=== PATIENT | female | born 1980 | race Caucasian/White ===

== ENCOUNTER 2017-07-12 11:52 | Emergency (ER) | payer BC, MEDICAID ==
[2017-07-12] MEDS ORDERED: Sodium Chloride 0.9% 10 ML Syringe FLUSH PRN (12:20)
[2017-07-12] MEDS ORDERED: Metoclopramide 10 MG/2 ML SDV IVPUSH ONE (12:21)
[2017-07-12] MEDS ORDERED: diphenhydrAMINE 50 MG/ML SDV IVPUSH ONE (12:22)
[2017-07-12] MEDS ORDERED: HYDROmorphone 0.5 MG/0.5 ML Syringe IVPUSH ONE ×3 (12:22→15:10)
[2017-07-12] MEDS ORDERED: Sodium Chloride 0.9% 1,000 ML IV SCH (12:30)
--- NOTE | 2017-07-12 12:59 | EDM.PDOC ---
ED HPI GENERAL MEDICAL PROBLEM - General Chief Complaint: Headache Stated Complaint: HEADACHE,10 WKS ,VOMITIN Time Seen by Provider: 07/12/17 12:09 Source of Information: Reports: Patient History Limitations: Reports: No Limitations - History of Present Illness INITIAL COMMENTS - FREE TEXT/NARRATIVE: The patient has a headache since last Thursday so for 8 days. It started in the frontal area and now it is every where. She has a history of headaches but she will usually take excedrin and it goes away. She is 10 weeks with a LNMP of May 03. She has seen her doctor and given reglan and benadryl and it is not going away. She has no fever or chills. The light makes it worse. She has no numbness or weakness. She has nausea and vomiting. She has no discharge or bleeding. Onset: Gradual Duration: Day(s): (8) Location: Reports: Head Quality: Reports: Ache Severity: Severe Improves with: Reports: None Worsens with: Reports: Other (Light) Associated Symptoms: Reports: Headaches, Nausea/Vomiting. Denies: Chest Pain, Fever/Chills, Shortness of Breath Headache Pain Score (Numeric/FACES): 10 - Related Data Allergies Allergy/AdvReac Type Severity Reaction Status Date / Time cefixime [From Suprax] Allergy Hives Verified 07/12/17 12:10 Home Meds: Home Meds Acetaminophen with Codeine [Tylenol with Codeine #3 Tablet] 1 - 2 tab PO Q4H PRN 07/12/17 [History] Ondansetron [Zofran] 4 mg PO Q8H PRN 07/12/17 [History] Vit W-Ca,Fe,FA(<1 mg) [ Vitamins] 1 tab PO DAILY 07/12/17 [ History] Past Medical History CAT SKINNER History: Reports: Other Neuro History: "narceleptic" - Past Surgical History HEENT Surgical History: Reports: Tonsillectomy Other HEENT Surgeries/Procedures: TMJ Social & Family History - Family History Family Medical History: Noncontributory - Tobacco Use Smoking Status *Q: Never Smoker - Recreational Drug Use Recreational Drug Use: No ED ROS GENERAL - Review of Systems Review Of Systems: See Below Constitutional: Reports: No Symptoms HEENT: Reports: No Symptoms Respiratory: Reports: No Symptoms Cardiovascular: Reports: No Symptoms Endocrine: Reports: No Symptoms GI/Abdominal: Reports: Nausea, Vomiting. Denies: Abdominal Pain : Reports: No Symptoms Musculoskeletal: Reports: No Symptoms Skin: Reports: No Symptoms Neurological: Reports: Headache - Physical Exam Exam: See Below Exam Limited By: No Limitations General Appearance: Alert, No Apparent Distress Ears: Normal External Exam Nose: Normal Inspection Head Exam: Atraumatic, Normocephalic Neck: Normal Inspection Respiratory/Chest: No Respiratory Distress, Lungs Clear, Normal Breath Sounds Cardiovascular: Regular Rate, Rhythm, No Edema, No Murmur GI/Abdominal: Soft, Non-Tender, No Organomegaly, No Mass Neuro Exam (Abbreviated): Alert, Oriented, No Motor/Sensory Deficits Course - Vital Signs Last Recorded V/S: Last Vital Signs Temp 97.9 F 07/12/17 12:05 Pulse 67 07/12/17 15:30 Resp 16 07/12/17 15:30 BP 112/57 L 07/12/17 15:30 Pulse Ox 98 07/12/17 15:30 - Orders/Labs/Meds Orders: Active Orders 24 hr Category Date Time Status Cardiac Monitoring [RC] . DIRECTED Care 07/12/17 12:20 Active Peripheral IV Care [RC] . DIRECTED Care 07/12/17 12:20 Active UA W/MICROSCOPIC [URIN] Stat Lab 07/12/17 12:20 Uncollected Sodium Chloride 0.9% [Normal Saline] 1,000 ml Med 07/12/17 12:30 Active IV .BOLUS Sodium Chloride 0.9% [Saline Flush] Med 07/12/17 12:20 Active 10 ml FLUSH ASDIRECTED PRN Peripheral IV Insertion Adult [OM.PC] Stat Oth 07/12/17 12:20 Ordered Medication Orders Sodium Chloride (Normal Saline) 1,000 mls @ 1,000 mls/hr IV .BOLUS ASHLYN Last Admin: 07/12/17 12:39 Dose: 1,000 mls/hr Sodium Chloride (Saline Flush) 10 ml FLUSH ASDIRECTED PRN PRN Reason: Keep Vein Open Last Admin: 07/12/17 12:30 Dose: 10 ml Labs: Laboratory Tests 07/12/17 07/12/17 Range/Units 12:30 12:30 WBC 14.03 H (3.98-10.04) K/mm3 RBC 4.41 (3.98-5.22) M/mm3 Hgb 13.3 (11.2-15.7) gm/L Hct 39.3 (34.1-44.9) % MCV 89.1 (79.4-94.8) fl MCH 30.2 (25.6-32.2) pg MCHC 33.8 (32.2-35.5) g/dl RDW Std Deviation 38.6 (36.4-46.3) fL Plt Count 134 L (182-369) K/mm3 MPV 10.3 (9.4-12.3) fl Neut % (Auto) 83.8 H (34.0-71.1) % Lymph % (Auto) 9.2 L (19.3-51.7) % [place] % (Auto) 5.6 (4.7-12.5) % Eos % (Auto) 0.9 (0.7-5.8) Baso % (Auto) 0.1 (0.1-1.2) % Neut # (Auto) 11.77 H (1.56-6.13) K/mm3 Lymph # (Auto) 1.29 (1.18-3.74) K/mm3 [place] # (Auto) 0.78 H (0.24-0.36) K/mm3 Eos # (Auto) 0.13 (0.04-0.36) K/mm3 Baso # (Auto) 0.01 (0.01-0.08) K/mm3 Manual Slide Review Abnormal smear Sodium 136 (136-145) mEq/L Potassium 3.7 (3.5-5.1) mEq/L Chloride 102 (98-107) mEq/L Carbon Dioxide 26 (21-32) mEq/L Anion Gap 11.7 (5-15) BUN 10 (7-18) mg/dL Creatinine 0.8 (0.55-1.02) mg/dL Est Cr Clr Drug Dosing 98.07 mL/min Estimated GFR (MDRD) > 60 (>60) mL/min BUN/Creatinine Ratio 12.5 L (14-18) Glucose 104 (74-106) mg/dL Calcium 9.5 (8.5-10.1) mg/dL Total Bilirubin 0.5 (0.2-1.0) mg/dL AST 15 (15-37) U/L ALT 21 (14-59) U/L Alkaline Phosphatase 89 (46-116) U/L Total Protein 7.4 (6.4-8.2) g/dl Albumin 3.4 (3.4-5.0) g/dl Globulin 4.0 gm/dL Albumin/Globulin Ratio 0.9 L (1-2) Meds: Medications Generic Name Dose Route Start Last Admin Trade Name Freq PRN Reason Stop Dose Admin Sodium Chloride 1,000 mls @ 1,000 mls/hr 07/12/17 12:30 07/12/17 12:39 Normal Saline IV 1,000 mls/hr .BOLUS ASHLYN Administration Sodium Chloride 10 ml 07/12/17 12:20 07/12/17 12:30 Saline Flush FLUSH 10 ml ASDIRECTED PRN Administration Keep Vein Open Discontinued Medications Generic Name Dose Route Start Last Admin Trade Name Freq PRN Reason Stop Dose Admin Diphenhydramine HCl 50 mg 07/12/17 12:22 07/12/17 12:43 Benadryl IVPUSH 07/12/17 12:23 50 mg ONETIME ONE Administration Hydromorphone HCl 0.5 mg 07/12/17 12:22 07/12/17 12:46 Dilaudid IVPUSH 07/12/17 12:23 0.5 mg ONETIME ONE Administration Hydromorphone HCl 0.5 mg 07/12/17 13:43 07/12/17 13:59 Dilaudid IVPUSH 07/12/17 13:44 0.5 mg ONETIME ONE Administration Hydromorphone HCl 0.5 mg 07/12/17 15:10 07/12/17 15:25 Dilaudid IVPUSH 07/12/17 15:11 0.5 mg ONETIME ONE Administration Metoclopramide HCl 10 mg 07/12/17 12:21 07/12/17 12:41 Reglan IVPUSH 07/12/17 12:22 10 mg ONETIME ONE Administration - Re-Assessments/Exams Free Text/Narrative Re-Assessment/Exam: 07/12/17 16:01 I ordered an IV NS 1L bolus, reglan 10mg IV, benadryl 50mg IV and dilaudid 0.5mg IV. 08/20/17 16:01 Her WBC was elevated at 14.03. The rest of her labs look good. Her headache would come back at times. I gave her a couple more doses of dilaudid 0.5mg IV. Departure - Departure Time of Disposition: 16:05 Disposition: Home, Self-Care 01 Condition: Good Clinical Impression: Headache Qualifiers: Headache type: unspecified Headache chronicity pattern: acute headache Intractability: not intractable Qualified Code(s): R51 - Headache Qualifiers: Weeks of gestation: 10 weeks Qualified Code(s): Z3A.10 - 10 weeks gestation of - Discharge Information Referrals: Ester Conklin MD [Primary Care Provider] - Forms: ED Department Discharge Additional Instructions: Go home and rest. Follow up with Dr Conklin this week. Please return if you are worse. - My Orders Last 24 Hours: My Active Orders 07/12/17 12:20 Cardiac Monitoring [RC] . DIRECTED Peripheral IV Care [RC] . DIRECTED UA W/MICROSCOPIC [URIN] Stat Sodium Chloride 0.9% [Saline Flush] 10 ml FLUSH ASDIRECTED PRN Peripheral IV Insertion Adult [OM.PC] Stat 07/12/17 12:30 Sodium Chloride 0.9% [Normal Saline] 1,000 ml IV .BOLUS - Assessment/Plan Last 24 Hours: My Active Orders 07/12/17 12:20 Cardiac Monitoring [RC] . DIRECTED Peripheral IV Care [RC] . DIRECTED UA W/MICROSCOPIC [URIN] Stat Sodium Chloride 0.9% [Saline Flush] 10 ml FLUSH ASDIRECTED PRN Peripheral IV Insertion Adult [OM.PC] Stat 07/12/17 12:30 Sodium Chloride 0.9% [Normal Saline] 1,000 ml IV .BOLUS
[2017-07-12 16:47] VITALS: BP 109/61
== END 2017-07-12 16:10 | disposition home or self-care (01) ==
LOC: JD.ED 11:52
DX: O99.89 Other specified diseases and conditions complicating pregnancy, childbirth and the puerperium (principal); R51 Headache; Z88.1 Allergy status to other antibiotic agents; Z98.890 Other specified postprocedural states; Z79.899 Other long term (current) drug therapy; Z3A.10 10 weeks gestation of pregnancy
CPT/HCPCS: 36415; 80053; 85025; 96361; 96374; 96375; 96376; 99284; J1170; J1200; J2765; J7040; J7050

== ENCOUNTER 2017-07-16 13:37 | Emergency (ER) | payer BC ==
[2017-07-16] MEDS ORDERED: Metoclopramide 10 MG/2 ML SDV IVPUSH ONE ×2 (14:39→18:07)
[2017-07-16] MEDS ORDERED: diphenhydrAMINE 50 MG/ML SDV IVPUSH ONE (14:39)
[2017-07-16] MEDS ORDERED: HYDROmorphone 1 MG/ML Syringe IVPUSH ONE ×2 (14:39→16:46)
[2017-07-16] MEDS ORDERED: Sodium Chloride 0.9% 10 ML Syringe FLUSH PRN (14:39)
--- NOTE | 2017-07-16 14:45 | EDM.PDOC ---
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 The is located to her entire cranium and into her neck. She has associated nausea, vomiting, photophobia, and phonophobia. She has vomited several times today and has been unable to keep food or fluids down. She has been struggling with headaches for the past two weeks. Her OBGYN put her on Tylenol #3 which does give her some relief. She denies fever, chills, or sweats. She has a history of migraines but never this severe. She says her BP has been well controlled through her . No weakness in extremities, difficulty walking, slurred speech, facial droop or vision changes. She was in the ED on 07/12/[address] was seen by Dr. Savage. She was treated with Dilaudid, Reglan and Benadryl. She had improvement while in the ED but the headache returned after discharge and has been persistent. She was scheduled to see a Neurologist at [place] today but due to the severity of her pain, she came to the ER and rescheduled her Neurology appointment for tomorrow. 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 Denies: Fever, Chills, Diaphoresis HEENT: Reports: No Symptoms. Denies: Vertigo, Vision Change Respiratory: Reports: No Symptoms Cardiovascular: Reports: No Symptoms. Denies: Blood Pressure Problem GI/Abdominal: Reports: Nausea, Vomiting. Denies: Abdominal Pain, Diarrhea Neurological: Reports: Headache. Denies: Dizziness, Numbness, Tingling, Difficulty Walking, Weakness - Physical Exam Exam: See Below Exam Limited By: No Limitations General Appearance: Alert, WD/WN, Moderate Distress Eye Exam: Bilateral Eye: EOMI, Normal Inspection, PERRL Throat/Mouth: Normal Inspection, Normal Oropharynx Neck: Normal Inspection, Supple, Non-Tender, Full Range of Motion, Other (no nuchal rigidity ). No: Tender Midline Respiratory/Chest: No Respiratory Distress, Lungs Clear, Normal Breath Sounds, Chest Non-Tender Cardiovascular: Normal Peripheral Pulses, Regular Rate, Rhythm, No Murmur GI/Abdominal: Normal Bowel Sounds, Soft, Non-Tender Neuro Exam (Abbreviated): Alert, Oriented, CN II-XII Intact, Normal Cognition, No Motor/Sensory Deficits, Other (cerebellar testing intact ) Course - Vital Signs Last Recorded V/S: Last Vital Signs Temp 98.3 F 07/16/17 13:44 Pulse 57 L 07/16/17 16:17 Resp 20 07/16/17 16:17 BP 105/64 07/16/17 16:17 Pulse Ox 100 07/16/17 16:17 Orthostatic Blood Pressure [ 119/63 Standing] Orthostatic Blood Pressure [ 122/61 Supine] - Orders/Labs/Meds Orders: Active Orders 24 hr Category Date Time Status Peripheral IV Care [RC] . DIRECTED Care 07/16/17 14:41 Active [place] VIRUS PANEL IGG,IGM [REF] Stat Lab 07/16/17 14:35 Received Sodium Chloride 0.9% [Saline Flush] Med 07/16/17 14:39 Active 10 ml FLUSH ASDIRECTED PRN Peripheral IV Insertion Adult [OM.PC] Stat Oth 07/16/17 14:39 Ordered Medication Orders Sodium Chloride (Saline Flush) 10 ml FLUSH ASDIRECTED PRN PRN Reason: Keep Vein Open Last Admin: 07/16/17 15:03 Dose: 10 ml Labs: Laboratory Tests 07/16/17 07/16/17 07/16/17 Range/Units 14:29 14:39 14:39 WBC 17.25 H (3.98-10.04) K/mm3 RBC 4.30 (3.98-5.22) M/mm3 Hgb 13.0 (11.2-15.7) gm/L Hct 37.6 (34.1-44.9) % MCV 87.4 (79.4-94.8) fl MCH 30.2 (25.6-32.2) pg MCHC 34.6 (32.2-35.5) g/dl RDW Std Deviation 37.9 (36.4-46.3) fL Plt Count 145 L (182-369) K/mm3 MPV 10.3 (9.4-12.3) fl Neut % (Auto) 90.3 H (34.0-71.1) % Lymph % (Auto) 5.6 L (19.3-51.7) % [place] % (Auto) 3.5 L (4.7-12.5) % Eos % (Auto) 0.2 L (0.7-5.8) Baso % (Auto) 0.1 (0.1-1.2) % Neut # (Auto) 15.58 H (1.56-6.13) K/mm3 Lymph # (Auto) 0.97 L (1.18-3.74) K/mm3 [place] # (Auto) 0.61 H (0.24-0.36) K/mm3 Eos # (Auto) 0.03 L (0.04-0.36) K/mm3 Baso # (Auto) 0.01 (0.01-0.08) K/mm3 Manual Slide Review Abnormal smear Sodium 134 L (136-145) mEq/L Potassium 3.7 (3.5-5.1) mEq/L Chloride 102 (98-107) mEq/L Carbon Dioxide 24 (21-32) mEq/L Anion Gap 11.7 (5-15) BUN 7 (7-18) mg/dL Creatinine 0.6 (0.55-1.02) mg/dL Est Cr Clr Drug Dosing TNP Estimated GFR (MDRD) > 60 (>60) mL/min BUN/Creatinine Ratio 11.7 L (14-18) Glucose 94 (74-106) mg/dL Calcium 9.1 (8.5-10.1) mg/dL Total Bilirubin 0.3 (0.2-1.0) mg/dL AST 18 (15-37) U/L ALT 23 (14-59) U/L Alkaline Phosphatase 97 (46-116) U/L C-Reactive Protein 6.3 H* (<1.0) mg/dL Total Protein 7.0 (6.4-8.2) g/dl Albumin 3.2 L (3.4-5.0) g/dl Globulin 3.8 gm/dL Albumin/Globulin Ratio 0.8 L (1-2) Meds: Medications Generic Name Dose Route Start Last Admin Trade Name Freq PRN Reason Stop Dose Admin Sodium Chloride 10 ml 07/16/17 14:39 07/16/17 15:03 Saline Flush FLUSH 10 ml ASDIRECTED PRN Administration Keep Vein Open Discontinued Medications Generic Name Dose Route Start Last Admin Trade Name Freq PRN Reason Stop Dose Admin Diphenhydramine HCl 50 mg 07/16/17 14:39 07/16/17 14:58 Benadryl IVPUSH 07/16/17 14:40 50 mg ONETIME ONE Administration Hydromorphone HCl 1 mg 07/16/17 14:39 07/16/17 14:58 Dilaudid IVPUSH 07/16/17 14:40 1 mg ONETIME ONE Administration Hydromorphone HCl 1 mg 07/16/17 16:46 07/16/17 17:24 Dilaudid IVPUSH 07/16/17 16:47 1 mg ONETIME ONE Administration Lactated Ringer's 1,000 mls @ 999 mls/hr 07/16/17 15:11 07/16/17 16:15 Ringers, Lactated IV 07/16/17 16:11 999 mls/hr .BOLUS ONE Administration Metoclopramide HCl 10 mg 07/16/17 14:39 07/16/17 14:58 Reglan IVPUSH 07/16/17 14:40 10 mg ONETIME ONE Administration Metoclopramide HCl 5 mg 07/16/17 18:12 07/16/17 18:16 Reglan IM 07/16/17 18:13 5 mg ONETIME ONE Administration - Re-Assessments/Exams Free Text/Narrative Re-Assessment/Exam: CBC reveals a WBC of 17,000 with high neutrophils. This has increased since her previous visit. CRP is elevated at 6.3. CMP is normal except for sodium of 134. An IV was placed and she was given LR 1 liter bolus, Dilaudid, Reglan, and Benadryl. This improved her headache to a 6/10. She will be given an additional dose of Dilaudid. I discussed her history, exam findings, and labs were Dr. Maria. He recommends ordering [place] testing. Dr. Maria does not recommend LP since the patient is afebrile and does not appear toxic. The patient has f/u with Neurology tomorrow. She was strongly encouraged to f/u as scheduled. Instructed to return to ER if she develops a fever or any new or worsening symptoms. 07/16/17 18:20 The patient was feeling well but when she got up at discharge, she became nauseated and vomited again. She was given an additional 5mg of IM Reglan as her IV had been discontinued. I encouraged them to consider going to [facility] while she is feeling better and to go to the [place] ER if anything worsens. She was instructed to continue her prescriptions and to see Neurology tomorrow as scheduled. Departure - Departure Time of Disposition: 17:25 Disposition: Home, Self-Care 01 Condition: Good Clinical Impression: Headache Qualifiers: Headache type: unspecified Headache chronicity pattern: acute headache Intractability: not intractable Qualified Code(s): R51 - Headache Qualifiers: Weeks of gestation: 10 weeks Qualified Code(s): Z3A.10 - 10 weeks gestation of - Discharge Information Referrals: Ester Conklin MD [Primary Care Provider] - Forms: ED Department Discharge Additional Instructions: Continue to use Tylenol #3 for headache Follow-up with Neurology tomorrow as scheduled Return to ER if you develop a fever or any new or worsening symptoms Rest as much as possible. - My Orders Last 24 Hours: My Active Orders 07/16/17 14:35 [place] VIRUS PANEL IGG,IGM [REF] Stat 07/16/17 14:39 Sodium Chloride 0.9% [Saline Flush] 10 ml FLUSH ASDIRECTED PRN Peripheral IV Insertion Adult [OM.PC] Stat 07/16/17 14:41 Peripheral IV Care [RC] . DIRECTED - Assessment/Plan Last 24 Hours: My Active Orders 07/16/17 14:35 [place] VIRUS PANEL IGG,IGM [REF] Stat 07/16/17 14:39 Sodium Chloride 0.9% [Saline Flush] 10 ml FLUSH ASDIRECTED PRN Peripheral IV Insertion Adult [OM.PC] Stat 07/16/17 14:41 Peripheral IV Care [RC] . DIRECTED
[2017-07-16] MEDS ORDERED: Lactated Ringers 1,000 ML IV ONE (15:11)
[2017-07-16 16:18] VITALS: BP 105/64
[2017-07-16] MEDS ORDERED: Metoclopramide 10 MG/2 ML SDV IM ONE (18:12)
== END 2017-07-16 18:36 | disposition home or self-care (01) ==
LOC: JD.ED 13:37
DX: O21.9 Vomiting of pregnancy, unspecified (principal); R51 Headache; Z98.890 Other specified postprocedural states; Z3A.10 10 weeks gestation of pregnancy; Z88.8 Allergy status to other drugs, medicaments and biological substances
CPT/HCPCS: 36415; 80053; 85025; 86140; 86788; 86789; 96361; 96372; 96374; 96375; 96376; 99284; J1170; J1200; J2765; J7050; J7120

== ENCOUNTER 2017-10-27 16:33 | Emergency (ER) | payer BC ==
[2017-10-27 16:46] VITALS: BP 132/74
[2017-10-27] MEDS ORDERED: Sodium Chloride 0.9% 10 ML Syringe FLUSH PRN (17:14)
--- NOTE | 2017-10-27 17:52 | EDM.PDOC ---
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 Patient is also 25 weeks . Patient states September 03 had onset of a headache that progressively gotten worse. She was diagnosed with a blood clot in the brain and loss of vision in her left eye. Shunt was placed [address] [facility]. Since then she's been doing quite well up until this past Thursday. States Thursday developed a headache to the right side retro-orbital described as mild in nature and relieved on its own accord. She initially thought the headache was related to cold-like symptoms she's had for the past week that includes sinus congestion, runny nose, postnasal drip mild, and mild sore throat. States Thursday morning the headache came back and has persisted since. She says the headache is getting worse. She is concerned this is related to the shunt being plugged. States the headache on the right side of her face behind the eye is consistent with previous headache that occurred September 03. She has not had a headache since the shunt placement. She spoke with Dr. Ramirez Neurosurgeon from [facility] and was instructed to come to [place] to be further evaluated. The ER was notified. She has taken Tylenol only for the discomfort. Again the patient is 25 weeks and notes no abnormal vaginal discharge or bleeding present. She denies any nausea/vomiting, chest pain, shortness of breath, numbness or tingling, or any additional complaints. There are no focal neurological deficits noted. She does have mild stiff neck with no documented fever or chills. She has chronic issues with walking since losing the vision in her left eye. She is taking Lovenox 100 mg twice a day and vitamins. 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 - Past Surgical History HEENT Surgical History: Reports: Tonsillectomy Other HEENT Surgeries/Procedures: TMJ Respiratory Surgical History: Reports: None GI Surgical History: Reports: None Social & Family History - Family History Family Medical History: Noncontributory - Tobacco Use Smoking Status *Q: Unknown Ever Smoked Years of Tobacco use: 10 Month Tobacco Last Used: 2013 - Caffeine Use Caffeine Use: Reports: None - Recreational Drug Use Recreational Drug Use: No ED ROS GENERAL - Review of Systems Review Of Systems: See Below Constitutional: Reports: No Symptoms HEENT: Reports: Vision Change (Left eye blindness, with questionable increased blurriness to the right eye.) Respiratory: Reports: No Symptoms Cardiovascular: Reports: No Symptoms GI/Abdominal: Reports: No Symptoms Musculoskeletal: Reports: Neck Pain (stiff neck) Skin: Reports: No Symptoms Neurological: Reports: Headache (Right-sided retro-orbital with photophobia.), Difficulty Walking (Chronic secondary to left eye blindness.). Denies: Dizziness, Numbness, Tingling Psychiatric: Reports: No Symptoms - Physical Exam Exam: See Below Exam Limited By: No Limitations General Appearance: Alert, WD/WN, Mild Distress Eye Exam: Left Eye: Vision Changes (Blindness), Bilateral Eye: EOMI, PERRL Ears: Normal External Exam, Normal Canal, Hearing Grossly Normal, Normal TMs Nose: Normal Inspection, Nasal Swelling, Clear Rhinorrhea Throat/Mouth: Normal Inspection, Normal Oropharynx, Normal Voice, No Airway Compromise Head Exam: Atraumatic, Normocephalic Neck: Normal Inspection, Supple, Non-Tender, Full Range of Motion. No: Lymphadenopathy (L), Lymphadenopathy (R) Respiratory/Chest: No Respiratory Distress, Lungs Clear, Normal Breath Sounds, No Accessory Muscle Use, Chest Non-Tender Cardiovascular: Normal Peripheral Pulses, Regular Rate, Rhythm GI/Abdominal: Normal Bowel Sounds, Soft, Non-Tender, No Organomegaly Neuro Exam (Abbreviated): Alert, Oriented, CN II-XII Intact, Normal Cognition, No Motor/Sensory Deficits, Other (Cerebellar function intact: Finger-nose, rapid turning movements. No pronator drift. No facial droop. No weakness discrepancy is to the upper and lower extremities.) Back Exam: Normal Inspection Psychiatric: Normal Affect, Normal Mood Skin Exam: Warm, Dry, Intact, Normal Color, No Rash Course - Vital Signs Last Recorded V/S: Last Vital Signs Temp 98.4 F 10/27/17 16:39 Pulse 99 10/27/17 16:39 Resp BP 132/74 10/27/17 16:39 Pulse Ox 99 10/27/17 16:39 - Orders/Labs/Meds Orders: Active Orders 24 hr Category Date Time Status Peripheral IV Care [RC] . DIRECTED Care 10/27/17 17:14 Active Peripheral IV Insertion Adult [OM.PC] Stat Oth 10/27/17 17:14 Ordered Labs: Laboratory Tests 10/27/17 10/27/17 10/27/17 Range/Units 17:30 17:37 17:37 WBC 14.80 H (3.98-10.04) K/mm3 RBC 4.26 (3.98-5.22) M/mm3 Hgb 12.6 (11.2-15.7) gm/L Hct 38.0 (34.1-44.9) % MCV 89.2 (79.4-94.8) fl MCH 29.6 (25.6-32.2) pg MCHC 33.2 (32.2-35.5) g/dl RDW Std Deviation 41.9 (36.4-46.3) fL Plt Count 197 (182-369) K/mm3 MPV 11.0 (9.4-12.3) fl Neut % (Auto) 78.0 H (34.0-71.1) % Lymph % (Auto) 13.8 L (19.3-51.7) % [place] % (Auto) 5.7 (4.7-12.5) % Eos % (Auto) 1.8 (0.7-5.8) Baso % (Auto) 0.1 (0.1-1.2) % Neut # (Auto) 11.55 H (1.56-6.13) K/mm3 Lymph # (Auto) 2.04 (1.18-3.74) K/mm3 [place] # (Auto) 0.85 H (0.24-0.36) K/mm3 Eos # (Auto) 0.26 (0.04-0.36) K/mm3 Baso # (Auto) 0.01 (0.01-0.08) K/mm3 Sodium 141 (136-145) mEq/L Potassium 4.0 (3.5-5.1) mEq/L Chloride 108 H (98-107) mEq/L Carbon Dioxide 20 L (21-32) mEq/L Anion Gap 17.0 H (5-15) BUN 11 (7-18) mg/dL Creatinine 0.6 (0.55-1.02) mg/dL Est Cr Clr Drug Dosing 130.76 mL/min Estimated GFR (MDRD) > 60 (>60) mL/min BUN/Creatinine Ratio 18.3 H (14-18) Glucose 87 (74-106) mg/dL Calcium 9.6 (8.5-10.1) mg/dL Total Bilirubin 0.1 L (0.2-1.0) mg/dL AST 15 (15-37) U/L ALT 20 (14-59) U/L Alkaline Phosphatase 90 (46-116) U/L Total Protein 6.8 (6.4-8.2) g/dl Albumin 2.9 L (3.4-5.0) g/dl Globulin 3.9 gm/dL Albumin/Globulin Ratio 0.7 L (1-2) Urine Color Yellow (Yellow) Urine Appearance Clear (Clear) Urine pH 6.0 (5.0-8.0) Ur Specific [place] > or = 1.030 (1.005-1.030) Urine Protein Negative (Negative) Urine Glucose (UA) Negative (Negative) Urine Ketones Trace H (Negative) Urine Occult Blood Negative (Negative) Urine Nitrite Negative (Negative) Urine Bilirubin Negative (Negative) Urine Urobilinogen 0.2 (0.2-1.0) Ur Leukocyte Esterase Negative (Negative) Urine RBC 0-5 (0-5) /hpf Urine WBC 0-5 (0-5) /hpf Ur Epithelial Cells 0-5 (0-5) /hpf Urine Bacteria Few (FEW) /hpf Urine Mucus Not seen (FEW) /hpf Meds: Medications Discontinued Medications Generic Name Dose Route Start Last Admin Trade Name Laura PRN Reason Stop Dose Admin Acetaminophen 975 mg 10/27/17 18:37 10/27/17 18:44 Tylenol PO 10/27/17 18:38 975 mg NOW ONE Administration Sodium Chloride 10 ml 10/27/17 17:14 10/27/17 17:38 Saline Flush FLUSH 10 ml ASDIRECTED PRN Administration Keep Vein Open - Re-Assessments/Exams Free Text/Narrative Re-Assessment/Exam: IV established. Ordered CBC, chem 14, and UA. [address] [facility] to speak with Dr. Ramirez. He is in the middle of a procedure and will call back. Labs reviewed: White blood cell count 14.0, hemoglobin 12.6, platelet count 197 , sodium 141, potassium 4.0, AG 17.0, creatinine 0.6, LFTs within normal limits , UA negative for infection or protein. [address] Ramirez Neurosurgeon at [facility]. He suggested 2 options first being transferred to [place] for further evaluation. States headache of its own is not of any importance. She is not shunt dependent. Second option is to observe for a few hours with Tylenol and she feels like its getting any better that she can be discharged home with MRI of the brain tomorrow. Follow up at any time with him if her symptoms get any worse. 1838 Spoke with the patient. She states pain is moderate intensity and does not feel she requires transfer to [place] at this point. She does request Tylenol here in the ED for the headache and will obtain the MRI of the brain tomorrow. She wishes to be discharged home now. [facility] has been called for her. She'll call the ED tomorrow for results when I am working. Departure - Departure Time of Disposition: 18:42 Disposition: Home, Self-Care 01 Condition: Good Clinical Impression: Headache Qualifiers: Headache type: unspecified Headache chronicity pattern: acute headache Intractability: not intractable Qualified Code(s): R51 - Headache - Discharge Information Instructions: [facility] Headache, [id number] Referrals: Hillary Kinney MD [Primary Care Provider] - Forms: ED Department Discharge, ED Return to Work/School Form Additional Instructions: For headache take tylenol 600mg every 6 hrs for pain. Push the fluids. Suggests utilizing flonase 1-2 sprays to each nare twice a day until cold symptoms resolve. MRI of the brain will be obtained. They will call you tomorrow for earliest appt. Return to the E.D. if you develop any new or worsening symptoms. - My Orders Last 24 Hours: My Active Orders 10/27/17 17:14 Peripheral IV Care [RC] . DIRECTED Peripheral IV Insertion Adult [OM.PC] Stat - Assessment/Plan Last 24 Hours: My Active Orders 10/27/17 17:14 Peripheral IV Care [RC] . DIRECTED Peripheral IV Insertion Adult [OM.PC] Stat
[2017-10-27] MEDS ORDERED: Acetaminophen 325 MG Tab PO ONE (18:37)
== END 2017-10-27 18:56 | disposition home or self-care (01) ==
LOC: JD.ED 16:33
DX: O99.89 Other specified diseases and conditions complicating pregnancy, childbirth and the puerperium (principal); R51 Headache; Z88.8 Allergy status to other drugs, medicaments and biological substances; Z3A.25 25 weeks gestation of pregnancy
CPT/HCPCS: 36415; 80053; 81001; 85025; 99284; A9270; J7050

== ENCOUNTER 2017-10-28 11:08 | Emergency (ER) | payer BC ==
[2017-10-28] MEDS ORDERED: Sodium Chloride 0.9% 10 ML Syringe FLUSH PRN (11:21)
[2017-10-28] MEDS ORDERED: HYDROmorphone 0.5 MG/0.5 ML Syringe IVPUSH ONE (11:22)
[2017-10-28] MEDS ORDERED: Sodium Chloride 0.9% 1,000 ML IV SCH (11:30)
--- NOTE | 2017-10-28 11:59 | EDM.PDOC ---
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 She has history of hydrocephalus and shunt was placed on September 30. She is 25 weeks and states 2 days ago developed a headache to the right side of her head retro-orbital throbbing in sensation that has persisted and getting worse. She was seen yesterday in the ED by me. Spoke with Dr. Ramirez with neurosurgery at [facility]. Patient had no neurological changes with examination and states the headache was found to moderate intensity. Dr. Ramirez stated headache in itself is nothing to be concerned of and requested MRI of the brain to be conducted today on an outpatient basis only if patient's headache is controlled and does not worsen or develops any neurological deficits. Patient decided to go home last night after receiving Tylenol. Radiology came to the conclusion this a.m. they cannot do a CT shunt survey nor a MRI of the brain to evaluate for any abnormalities with the shunt due to the shunt is programmable and the magnet would wipe everything out. Margi ER nurse has been in contact with Libia with [facility]. They came to the conclusion patient will need to be flown to [place] for further evaluation. Patient does not have a ride at this time. She presents to the ER today with really no significant changes from previous ER visit yesterday. Headaches a 6 out of 10 right-sided retro-orbital throbbing sensation. Vision changes unchanged. No focal neurological deficits noted. Denies any nausea/ vomiting, chest pain, shortness of breath, numbness or tingling, or any additional complaints. 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 - Past Surgical History HEENT Surgical History: Reports: Tonsillectomy Other HEENT Surgeries/Procedures: TMJ Respiratory Surgical History: Reports: None GI Surgical History: Reports: None Social & Family History - Family History Family Medical History: Noncontributory - Tobacco Use Smoking Status *Q: Former Smoker Years of Tobacco use: 10 Packs/Tins Daily: 0.5 Used Tobacco, but Quit: Yes Month Tobacco Last Used: 3.5 years ago - Caffeine Use Caffeine Use: Reports: Coffee, Soda Caffeine Use Comment: one drink per day - Recreational Drug Use Recreational Drug Use: No ED ROS GENERAL - Review of Systems Review Of Systems: ROS reveals no pertinent complaints other than HPI. - Physical Exam Exam: See Below Exam Limited By: No Limitations General Appearance: Alert, WD/WN, No Apparent Distress Eye Exam: Bilateral Eye: EOMI, PERRL Ears: Hearing Grossly Normal Nose: Normal Inspection Throat/Mouth: Normal Inspection, Normal Oropharynx, Normal Voice, No Airway Compromise Neck: Normal Inspection, Supple, Non-Tender, Full Range of Motion Respiratory/Chest: No Respiratory Distress, Lungs Clear, Normal Breath Sounds, Chest Non-Tender Cardiovascular: Normal Peripheral Pulses, Regular Rate, Rhythm GI/Abdominal: Normal Bowel Sounds, Soft, Non-Tender, Distended (25 weeks ) Neuro Exam (Abbreviated): Alert, Oriented, CN II-XII Intact, Normal Cognition, Normal Gait, No Motor/Sensory Deficits, Other (Cerebellar function intact: Finger-nose, rapid alternating movements. Pronator drift negative. No weakness discrepancy still the upper and lower extremities. No facial droop or slurred speech. ) Back Exam: Normal Inspection, Full Range of Motion Extremities: Normal Inspection Psychiatric: Normal Affect, Normal Mood Skin Exam: Warm, Dry, Intact, Normal Color Course - Vital Signs Last Recorded V/S: Last Vital Signs Temp 98.5 F 10/28/17 12:45 Pulse 90 10/28/17 12:45 Resp 18 10/28/17 12:45 BP 138/83 10/28/17 12:45 Pulse Ox 98 10/28/17 12:45 - Orders/Labs/Meds Orders: Active Orders 24 hr Category Date Time Status Peripheral IV Care [RC] . DIRECTED Care 10/28/17 11:21 Active Peripheral IV Insertion Adult [OM.PC] Stat Oth 10/28/17 11:21 Ordered Labs: Laboratory Tests 10/28/17 10/28/17 10/28/17 Range/Units 11:10 11:10 11:10 WBC 15.07 H (3.98-10.04) K/mm3 RBC 4.53 (3.98-5.22) M/mm3 Hgb 13.4 (11.2-15.7) gm/L Hct 40.4 (34.1-44.9) % MCV 89.2 (79.4-94.8) fl MCH 29.6 (25.6-32.2) pg MCHC 33.2 (32.2-35.5) g/dl RDW Std Deviation 42.7 (36.4-46.3) fL Plt Count 197 (182-369) K/mm3 MPV 10.5 (9.4-12.3) fl Neut % (Auto) 80.0 H (34.0-71.1) % Lymph % (Auto) 13.2 L (19.3-51.7) % [place] % (Auto) 4.9 (4.7-12.5) % Eos % (Auto) 1.0 (0.7-5.8) Baso % (Auto) 0.1 (0.1-1.2) % Neut # (Auto) 12.05 H (1.56-6.13) K/mm3 Lymph # (Auto) 1.99 (1.18-3.74) K/mm3 [place] # (Auto) 0.74 H (0.24-0.36) K/mm3 Eos # (Auto) 0.15 (0.04-0.36) K/mm3 Baso # (Auto) 0.02 (0.01-0.08) K/mm3 Manual Slide Review Normal smear PT 10.2 (8.0-13.0) SECONDS INR 0.94 APTT 29 (22-36) SECONDS Sodium 137 (136-145) mEq/L Potassium 3.7 (3.5-5.1) mEq/L Chloride 106 (98-107) mEq/L Carbon Dioxide 23 (21-32) mEq/L Anion Gap 11.7 (5-15) BUN 11 (7-18) mg/dL Creatinine 0.7 (0.55-1.02) mg/dL Est Cr Clr Drug Dosing 112.08 mL/min Estimated GFR (MDRD) > 60 (>60) mL/min BUN/Creatinine Ratio 15.7 (14-18) Glucose 76 (74-106) mg/dL Calcium 9.8 (8.5-10.1) mg/dL Total Bilirubin 0.4 (0.2-1.0) mg/dL AST 11 L (15-37) U/L ALT 19 (14-59) U/L Alkaline Phosphatase 97 (46-116) U/L Total Protein 7.3 (6.4-8.2) g/dl Albumin 3.2 L (3.4-5.0) g/dl Globulin 4.1 gm/dL Albumin/Globulin Ratio 0.8 L (1-2) Meds: Medications Discontinued Medications Generic Name Dose Route Start Last Admin Trade Name Freq PRN Reason Stop Dose Admin Hydromorphone HCl 0.25 mg 10/28/17 11:22 10/28/17 11:32 Dilaudid IVPUSH 10/28/17 11:23 0.25 mg ONETIME ONE Administration Sodium Chloride 1,000 mls @ 50 mls/hr 10/28/17 11:30 10/28/17 11:31 Normal Saline IV 50 mls/hr ASDIRECTED ASHLYN Administration Sodium Chloride 10 ml 10/28/17 11:21 10/28/17 11:33 Saline Flush FLUSH 10 ml ASDIRECTED PRN Administration Keep Vein Open - Re-Assessments/Exams Free Text/Narrative Re-Assessment/Exam: [facility] fixed wing has been notified. Helicopter crew will be present 2 packs the patient approximate 10 minutes. IV established with initial blood work including CBC, chem 14, and coag studies. Patient requires transfer to [facility] to be evaluated by cerebrovascular neurosurgery for concerns of increasing ICP 2nd to faulty shunt. Due to patients history, current signs and symptoms, duration of symptoms, and distance from appropriate care fixed wing transport is the most appropriate means of transferring. CT of shunt [address] Ochoa Cerebrovascular Neurosurgery. Agrees patient requires to be transferred for further evaluation and testing. Request admission to Hospitalists. All transfer paperwork has been completed. 1158 Helicopter flight crew has arrived along with ambulance crew to transport patient to the airport. Still waiting for room number for patient to be transferred to [facility] in [place]. Will text flight crew once we know room number. 10/28/17 12:02 Room number is 603. Flight crew notified. Departure - Departure Time of Disposition: 11:59 Disposition: DC/Tfer to Acute Hospital 02 Condition: Good Clinical Impression: History of hydrocephalus, Cavernous sinus thrombosis, 20 or more weeks gestation of Head ache Qualifiers: Headache type: unspecified Headache chronicity pattern: acute headache Intractability: not intractable Qualified Code(s): R51 - Headache - Discharge Information Referrals: Hillary Kinney MD [Primary Care Provider] - Forms: ED Department Discharge - My Orders Last 24 Hours: My Active Orders 10/28/17 11:21 Peripheral IV Care [RC] . DIRECTED Peripheral IV Insertion Adult [OM.PC] Stat - Assessment/Plan Last 24 Hours: My Active Orders 10/28/17 11:21 Peripheral IV Care [RC] . DIRECTED Peripheral IV Insertion Adult [OM.PC] Stat
[2017-10-28 15:20] VITALS: BP 138/83
== END 2017-10-28 12:00 ==
LOC: JD.ED 11:08
DX: O99.352 Diseases of the nervous system complicating pregnancy, second trimester (principal); G08 Intracranial and intraspinal phlebitis and thrombophlebitis; Z88.1 Allergy status to other antibiotic agents; Z87.891 Personal history of nicotine dependence; Z3A.25 25 weeks gestation of pregnancy
CPT/HCPCS: 36415; 80053; 85025; 85610; 85730; 96374; 99285; J1170; J7040; J7050

== ENCOUNTER 2022-12-17 09:12 | Day surgery (SDC) | payer BC, MEDICARE ==
[~2022-12-17 09:12] MED LIST: Lactated Ringers 1,000 ML IV SCH; Lidocaine 1%/Sod Bicarbonate in NS 8.4% 1 ML Syringe IDERM PRN; Sodium Chloride 0.9% 10 ML Syringe FLUSH PRN; Sodium Chloride 0.9% 10 ML Syringe FLUSH SCH
[2022-12-17] MEDS ORDERED: Propofol 200 MG/20 ML SDV ONE ×2 (09:39→09:43)
[2022-12-17] MEDS ORDERED: Dexamethasone 4 MG/ML SDV ONE (09:39)
[2022-12-17] MEDS ORDERED: Midazolam 1 MG/ML 2 ML SDV ONE (09:40)
[2022-12-17] MEDS ORDERED: Lidocaine 1% 6 ML ONE (09:41)
[2022-12-17] MEDS ORDERED: Ondansetron 4 MG/2 ML SDV ONE (10:15)
[2022-12-17] MEDS ORDERED: fentaNYL 100 MCG/2 ML SDV ONE (10:49)
[2022-12-17 12:15] VITALS: BP 103/51; PULSE 75
== END 2022-12-17 12:08 | disposition home or self-care (01) ==
LOC: JD.SDS 09:12
PROVIDERS: ATTEND Surgery
DX: K63.5 Polyp of colon (principal); K21.00 Gastro-esophageal reflux disease with esophagitis, without bleeding; K29.70 Gastritis, unspecified, without bleeding; K31.89 Other diseases of stomach and duodenum; K44.9 Diaphragmatic hernia without obstruction or gangrene; K64.8 Other hemorrhoids; G47.419 Narcolepsy without cataplexy; F41.9 Anxiety disorder, unspecified; Q21.10 Atrial septal defect, unspecified; J45.909 Unspecified asthma, uncomplicated; Z98.890 Other specified postprocedural states; Z79.899 Other long term (current) drug therapy; Z87.891 Personal history of nicotine dependence; Z88.1 Allergy status to other antibiotic agents
CPT/HCPCS: 43239; 45380; J2250; J2405; J2704; J7120; 88305; J1100; J3010; J3490

== ENCOUNTER 2024-11-30 11:01 | Day surgery (SDC) | payer BC, MEDICARE ==
[~2024-11-30 11:01] MED LIST changes: +HYDROmorphone 0.5 MG/0.5 ML Syringe IVPUSH PRN; -Lactated Ringers 1,000 ML IV SCH; -Lidocaine 1%/Sod Bicarbonate in NS 8.4% 1 ML Syringe IDERM PRN; +Ondansetron 4 MG/2 ML SDV IVPUSH PRN; +fentaNYL 100 MCG/2 ML SDV IVPUSH PRN
[2024-11-30] MEDS: Lactated Ringers 1,000 ML IV SCH (11:30)
[2024-11-30] MEDS ORDERED: Midazolam 1 MG/ML 2 ML SDV ONE (12:35)
[2024-11-30] MEDS ORDERED: Lidocaine 1% 4 ML ONE (12:35)
[2024-11-30] MEDS ORDERED: Propofol 200 MG/20 ML SDV ONE (12:35)
[2024-11-30 15:21] VITALS: BP 115/67; PULSE 63
== END 2024-11-30 13:49 | disposition home or self-care (01) ==
LOC: JD.SDS 11:01
PROVIDERS: ATTEND Surgery
DX: K29.50 Unspecified chronic gastritis without bleeding (principal); K20.90 Esophagitis, unspecified without bleeding; K44.9 Diaphragmatic hernia without obstruction or gangrene; E66.9 Obesity, unspecified; Z88.1 Allergy status to other antibiotic agents; Z88.8 Allergy status to other drugs, medicaments and biological substances; Z79.899 Other long term (current) drug therapy; Z87.891 Personal history of nicotine dependence; Z68.36 Body mass index [BMI] 36.0-36.9, adult
CPT/HCPCS: 43239; J2250; J2704; J7120; 00731; 88305; J3490